=== PATIENT | male | born 1970 | race Caucasian/White ===

== ENCOUNTER 2016-06-23 19:35 | Emergency (ER) | payer OTHER, BC ==
[~2016-06-23] VITALS: Ht 175.3 cm; Wt 86.0 kg
[2016-06-23 19:39] VITALS: BP 139/90; PULSE 92; RESP 18; TEMP 98.3; O2SAT 99
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
[2016-06-23] MEDS ORDERED: KETOROLAC TROMETHAMINE 60 MG/2 ML (IM) VIAL IM ONE (20:45)
[2016-06-23] MEDS ORDERED: ORPHENADRINE INJ 60 MG/2 ML AMP IM ONE (20:45)
[2016-06-23] MEDS ORDERED: CYCL1TAB29 PO (21:42)
[2016-06-23] MEDS ORDERED: IBUP800T23 PO (21:42)
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
== END 2016-06-23 22:22 | disposition home or self-care (01) ==
LOC: PHEFT 19:35
DX: R51 Headache (principal); M54.6 Pain in thoracic spine; M54.5 Low back pain; M62.830 Muscle spasm of back; Z87.828 Personal history of other (healed) physical injury and trauma
CPT/HCPCS: 70450; 96372; 99284; J1885; J2360